=== PATIENT | male | born 1990 | race Caucasian/White ===

== ENCOUNTER 2017-06-10 00:12 | Emergency (ER) | payer MEDICAID ==
[~2017-06-10] VITALS: Ht 165.1 cm; Wt 75.0 kg
[2017-06-10] MEDS ORDERED: KETOROLAC 60MG/2ML VIAL IM ONE (08:30)
[2017-06-10 08:49] VITALS: BP 105/75
== END 2017-06-10 09:20 | disposition home or self-care (01) ==
LOC: ER 08:44
DX: M54.41 Lumbago with sciatica, right side (principal)
CPT/HCPCS: 96372; 99283; J1885; Z7610

== ENCOUNTER 2025-05-29 09:42 | Emergency (ER) | payer MEDICAID ==
[~2025-05-29] VITALS: Ht 165.1 cm; Wt 82.0 kg
[2025-05-29 09:50] VITALS: O2SAT 98
[2025-05-29 09:53] VITALS: BP 118/74; PULSE 78; RESP 16; TEMP 36.7; O2SAT 98
== END 2025-05-29 11:17 | disposition home or self-care (01) ==
LOC: ER 09:43
DX: S01.01XD Laceration without foreign body of scalp, subsequent encounter (principal); X58.XXXD Exposure to other specified factors, subsequent encounter
CPT/HCPCS: 99281